=== PATIENT | male | born 1985 | race Caucasian/White ===

== ENCOUNTER 2021-10-23 13:28 | Emergency (ER) | payer OTHER ==
[~2021-10-23] VITALS: Ht 188 cm; Wt 103.4 kg
--- NOTE | 2021-10-23 13:28 | NUR ---
PT BIBRA 40 FROM HOME C/O SUICIDAL IDEATION ON 5150 HOLD BY [employer] "PT TOOK 8 TABLET OF SEROQUEL 100MG EACH" PT IS AAOX4, NOT IN RESPIRATORY DISTRESS, HOOKED TO V/S MONITOR, KEPT RESTED AND COMFORTABLE. SITTER AT BEDSIDE. WILL CONTINUE TO MONITOR.
--- NOTE | 2021-10-23 13:54 | NUR ---
SEEN AND EXAMINED BY .
[2021-10-23 14:27] LABS: BASOPHILS # (AUTO) 0.1 K/uL (0.0-0.2); EOSINOPHILS % (AUTO) 0.5 % (0.0-6.0); HEMATOCRIT 46 % (39-51); HEMOGLOBIN 15.1 g/dL (13.5-17.5); LYMPHOCYTES % (AUTO) 31.6 % (20.0-44.0); MEAN CORPUSCULAR HGB CONC 33 g/dl (31.0-36.0); MEAN CORPUSCULAR VOLUME 91 fL (80-96); MONOCYTES # (AUTO) 0.5 K/uL (0.1-1.30); MONOCYTES % (AUTO) 7.9 % (2.0-12.0); NEUTROPHILS # (AUTO) 3.6 K/uL (1.8-8.9); PLATELET COUNT (AUTO) 252 K/uL (150-450); RED BLOOD CELL COUNT(AUTO) 5.09 MIL/uL (4.5-6.0); WHITE BLOOD COUNT (AUTO) 6.2 K/uL (4.3-11.0)
[2021-10-23 14:28] LABS: CALCIUM, SERUM 8.1 mg/dL (8.5-10.1); CARBON DIOXIDE 27 mmol/L (21-32); CHLORIDE 108 mmol/L (98-107); CREATININE 1.7 mg/dL (0.6-1.3); GLUCOSE 112 mg/dL (74-106); POTASSIUM 3.8 mmol/L (3.5-5.1); SODIUM SERUM 145 mmol/L (136-145); UREA NITROGEN, BLOOD 20 mg/dL (7-18)
[2021-10-23 14:34] LABS: ALANINE AMINOTRANSFERASE 36 U/L (12-78); ALBUMIN 3.2 g/dL (3.4-5.0); ALCOHOL, BLOOD 135 mg/dL (0-0); ALKALINE PHOSPHATASE 63 U/L (46-116); ASPARTATE AMINOTRANSFERASE 19 U/L (15-37); BILIRUBIN,DIRECT 0.1 mg/dL (0.0-0.2); BILIRUBIN,TOTAL 0.2 mg/dL (0.2-1.0); TOTAL PROTEIN, SERUM 6.1 g/dL (6.4-8.2)
--- NOTE | 2021-10-23 14:46 | NUR ---
CALLED [facility] AND SPOKE WITH PETERSON. SHE RECOMMENDS THAT PT IS OBSERVED FOR 12 HOURS AFTER INGESTION OF MEDICATION AND UNTIL BACK TO BASELINE, TOX SCREEN AND EKG. CALL BACK IF QTC INTERVAL IS ABOVE 500.
--- NOTE | 2021-10-23 14:56 | NUR ---
COVID SWAB DONE AND SENT TO LAB
[2021-10-23 15:07] LABS: BILIRUBIN,URINE NEGATIVE (NEGATIVE); COLOR,URINE YELLOW (YELLOW); LEUKOCYTE ESTERASE ,URINE NEGATIVE (NEGATIVE); NITRITE, URINE NEGATIVE (NEGATIVE); PROTEIN,URINE NEGATIVE (NEGATIVE); UGLUCOSE NEGATIVE (NEGATIVE); UROBILINOGEN,URINE 0.2 EU/dL (0.2)
[2021-10-23 15:22] LABS: ACETAMINOPHEN < 2 ug/ml (10-30)
[2021-10-23] MEDS ORDERED: IV NS 0.9% 1,000 ML IV ONE (16:30)
[2021-10-23] MEDS ORDERED: QUET100T PO (17:36)
--- NOTE | 2021-10-23 20:09 | NUR ---
ER MD BAZZI ON PHONE CALL WITH ER MD STEWART FROM [facility]
--- NOTE | 2021-10-23 20:16 | NUR ---
COVID PCR SWAB DONE AND SENT TO LAB
[2021-10-23 20:17] LABS: CALCIUM, SERUM 7.5 mg/dL (8.5-10.1); CREATININE 1.3 mg/dL (0.6-1.3); POTASSIUM 3.6 mmol/L (3.5-5.1)
--- NOTE | 2021-10-23 21:56 | NUR ---
PER MARY AT POISON CONTROL, CASE CLOSED.
[2021-10-23] MEDS ORDERED: LORAZEPAM 1 MG TABLET PO ONE (23:30)
[2021-10-23] MEDS ORDERED: LORAZEPAM 1 MG TABLET ONE (23:41)
--- NOTE | 2021-10-23 23:45 | NUR ---
JOSE CARLOS AT PATIENT BEDSIDE.
--- NOTE | 2021-10-24 00:24 | NUR ---
Patient's clinicals are being faxed to, [facility] and Mena [facility]ell.
--- NOTE | 2021-10-24 03:00 | NUR ---
FOLLOWING UP WITH [facility] INTAKE FOR ACCEPTED UPDATE. CM TO CALL BACK.
--- NOTE | 2021-10-24 08:00 | NUR ---
BREAKFAST TRAY PROVIDED, TOLERATED WELL
--- NOTE | 2021-10-24 10:55 | NUR ---
PATIENT PRESENTED TO [facility]. FACESHEET, CLINICALS FAXED.
--- NOTE | 2021-10-24 11:00 | NUR ---
CALLED [facility]. SPOKE TO NO AVAILABLE BED AT THIS TIME.
--- NOTE | 2021-10-24 11:11 | NUR ---
CALLED [facility]. WILL NOT TAKE MEDICAL PATIENT OVER 20 YRS OLD.
[2021-10-24 12:15] VITALS: BP 123/62
--- NOTE | 2021-10-24 12:15 | NUR ---
LUNCH TRAY PROVIDED, TOLERATED WELL
--- NOTE | 2021-10-24 17:20 | NUR ---
REFAXED CLINICALS TO [phone] [facility].
--- NOTE | 2021-10-24 17:32 | NUR ---
REFAXED CLINICALS TO [facility] [phone]
--- NOTE | 2021-10-24 17:46 | NUR ---
PT ACCEPTED AT [facility]. GOING TO [facility], [address] CARLOS
--- NOTE | 2021-10-24 17:50 | NUR ---
NUMBER FOR REPORT [phone]
--- NOTE | 2021-10-24 17:55 | NUR ---
[facility] CALLED FOR TRANSPORT ETA 1899 PER LAURENCE
--- NOTE | 2021-10-24 18:25 | NUR ---
REPORT GIVEN TO ELIOT THOMAS AT [facility]. AWAITING [facility] TRANSPORT.
--- NOTE | 2021-10-24 18:44 | NUR ---
PICKED UP BY TRANSPORT IN STABLE CONDITION
== END 2021-10-24 18:59 ==
LOC: ER 13:30
DX: T43.592A Poisoning by other antipsychotics and neuroleptics, intentional self-harm, initial encounter (principal); N17.9 Acute kidney failure, unspecified; T51.0X2A Toxic effect of ethanol, intentional self-harm, initial encounter; R40.0 Somnolence; Y92.89 Other specified places as the place of occurrence of the external cause; R94.31 Abnormal electrocardiogram [ECG] [EKG]; F32.A Depression, unspecified
CPT/HCPCS: 36415; 80048 ×2; 80076; 80143; 80307; 80320; 81003; 85025; 87426; 93005; 96360; 99285; C9803 ×2; J7030; U0003; G0480